=== PATIENT | female | born 1990 | race Caucasian/White ===

== ENCOUNTER 2017-02-06 05:14 | Inpatient (IN) | payer OTHER ==
[2017-02-06] VITALS (24 sets, daily range): BP systolic 108–169; BP diastolic 67–102
[~2017-02-06 05:14] MED LIST: CIPRO500 MG PO; COLACE100 MG PO; MACROBID100 MG PO; MIRALAX17 GM PO; NOHOMEMEDS; NORCO 5/3251 TABLET PO
[2017-02-06 06:42] LABS: BASOPHIL COUNT 0.1 K/uL (0-0.1); EOSINOPHIL (%) 0.5 % (0-5); EOSINOPHIL COUNT 0.1 K/uL (0-0.3); HEMATOCRIT 29.5 % (36.0-46.0); IMMATURE GRANULOCYTE (%) 3.9 % (0.0-0.7); IMMATURE GRANULOCYTE COUNT 0.8 K/uL; INSTRUMENT ABS NEUTROPHIL CT 15.6 K/uL; LYMPHOCYTE COUNT 1.5 K/uL (1.0-2.8); MCH 23.3 PG (29.0-34.0); MCHC 30.5 G/DL (30.0-36.0); MCV 76.2 FL (83-99); MEAN PLAT.VOLUME 8.8 uM^3 (9.5-12.4); MONOCYTE (%) 6.4 % (3-12); MONOCYTE COUNT 1.2 K/uL (0-0.8); NEUTROPHIL (%) 80.9 % (45-76); NEUTROPHIL COUNT 15.6 K/uL (1.8-6.4); NRBC (%) 0.1 /100 WBC (0-0); PLATELET COUNT 384 K/uL (156-360); RBC DIS.WIDTH-CV 16.4 % (11.8-14.6); RBC DIS.WIDTH-SD 44.3 % (39-53); RED BLOOD COUNT 3.87 M/uL (3.80-5.20); WHITE BLOOD COUNT 19.2 K/uL (4.1-10.2)
[2017-02-07 07:32] LABS: BASOPHIL COUNT 0.1 K/uL (0-0.1); EOSINOPHIL (%) 0.9 % (0-5); EOSINOPHIL COUNT 0.2 K/uL (0-0.3); HEMATOCRIT 26.3 % (36.0-46.0); IMMATURE GRANULOCYTE (%) 2.1 % (0.0-0.7); IMMATURE GRANULOCYTE COUNT 0.4 K/uL; LYMPHOCYTE COUNT 2.1 K/uL (1.0-2.8); MCH 23.2 PG (29.0-34.0); MCV 77.1 FL (83-99); MEAN PLAT.VOLUME 9.1 uM^3 (9.5-12.4); MONOCYTE (%) 8.2 % (3-12); MONOCYTE COUNT 1.7 K/uL (0-0.8); PLATELET COUNT 385 K/uL (156-360); RBC DIS.WIDTH-CV 16.8 % (11.8-14.6); RBC DIS.WIDTH-SD 46.1 % (39-53); RED BLOOD COUNT 3.41 M/uL (3.80-5.20); WHITE BLOOD COUNT 20.5 K/uL (4.1-10.2)
[2017-02-07 11:57] VITALS: BP 125/79
[2017-02-07 15:59] VITALS: BP 114/80
[2017-02-07 23:26] VITALS: BP 142/100
[2017-02-08 00:30] VITALS: BP 127/92
[2017-02-08 02:00] VITALS: BP 110/76
[2017-02-08 07:52] VITALS: BP 118/84
[2017-02-08] MEDS ORDERED: FERROUS GLUCON324 MG PO (10:53)
[2017-02-08] MEDS ORDERED: IBUPROFEN800 MG PO (10:53)
== END 2017-02-08 18:09 | disposition home or self-care (01) | DRG 775 ==
LOC: LDRP-OP 05:14 → 2WEST 05:15 → LDRP-OP 03-07 18:18
PROVIDERS: Advanced Practice Midwife
DX: O99.02 Anemia complicating childbirth (principal); O99.344 Other mental disorders complicating childbirth; O77.0 Labor and delivery complicated by meconium in amniotic fluid; Z3A.40 40 weeks gestation of pregnancy; Z37.0 Single live birth; F33.9 Major depressive disorder, recurrent, unspecified
CPT/HCPCS: 85025; C1755; J2405; J3010; J7120